=== PATIENT | male | born 1950 | race African-American/Black ===

== ENCOUNTER 2022-11-10 00:03 | Inpatient (IN) ==
[2022-11-10] MEDS ORDERED: MORPHINE 2 MG/1 ML SYRINGE IV PRN (04:19)
[2022-11-10] MEDS ORDERED: ACETAMINOPHEN 325 MG TABLET PO PRN (04:19)
[2022-11-10] MEDS ORDERED: ONDANSETRON 4 MG/2 ML VIAL IV PRN (04:19)
[2022-11-10] MEDS ORDERED: SODIUM CHLORIDE 0.9% 1,000 ML IV PRN (04:27)
[2022-11-10 05:19] LABS: Basophils % 0.3 % (0.0-0.8); Eosinophils # 0.1 10*3/uL (0.0-0.87); Eosinophils % 1.6 % (0.00-10.9); Hematocrit 23.3 VOL% (42.0-52.0); Hemoglobin 6.7 GM/DL (14.0-18.0); Immature Granulocytes % 0.3 %; Immature Granulocytes Absolute 0.02 #; Lymphocytes # 3.4 10*3/uL (1.4-4.0); Lymphocytes % 44.6 % (21.2-54.2); Mean Corpuscular HGB Conc 28.8 GM/DL (32-36); Mean Corpuscular Volume 76.4 FL (87-102); Mean Platelet Volume 9.8 FL (9.6-12.0); Monocytes # 0.6 10*3/uL (0.11-0.8); Monocytes % 7.4 % (1.7-12.7); Neutrophils % 45.8 % (38.7-73.9); Platelet Count 261 T/CUMM (130-400); Red Blood Count 3.05 MC/CUMM (3.8-5.5); Red Cell Distribution Width 18.5 % (9.3-17.3); White Blood Count 7.58 T/CUMM (4-12)
[2022-11-10 05:40] LABS: Albumin 2.9 G/DL (3.4-5.0); Bilirubin,Total 0.5 MG/DL (0.20-1.00); Calcium 8.9 MG/DL (8.5-10.1); Osmolality,Calculated 287.7 MOS/KG (273-304); Potassium 3.4 MMOL/L (3.5-5.1)
[2022-11-10] MEDS ORDERED: MAGNESIUM SULF RIDER 2 GM/50 ML PREMIX IV PRN (05:54)
[2022-11-10] MEDS ORDERED: MAGNESIUM SULF RIDER 4 GM/100 ML PREMIX IV PRN (05:54)
[2022-11-10] MEDS: INSULIN REGULAR 100 UNIT/ML SUBCUT SCH ×4 (08:54→21:30)
[2022-11-10] MEDS: EZETIMIBE 10 MG TABLET PO SCH (10:50)
[2022-11-10] MEDS: ISOSORBIDE DINITRATE 10 MG TABLET PO SCH ×2 (10:50→21:55)
[2022-11-10] MEDS: atenoloL 50 MG TABLET PO SCH (10:50)
[2022-11-10] MEDS: PANTOPRAZOLE 40 MG TABLET PO SCH (10:50)
[2022-11-10] MEDS: FUROSEMIDE 20 MG/2 ML VIAL IV SCH ×2 (10:55→21:54)
[2022-11-10] MEDS ORDERED: GLUCAGON 1 MG VIAL IM PRN (12:12)
[2022-11-10] MEDS ORDERED: DEXTROSE 10% 250 ML BAG IV PRN (12:13)
[2022-11-10] MEDS ORDERED: FUROSEMIDE 40 MG/4 ML VIAL IV ONE (17:26)
[2022-11-10] MEDS: ROSUVASTATIN 20 MG TABLET PO SCH (21:55)
[2022-11-10 23:00] LABS: Hematocrit 30.5 VOL% (42.0-52.0); Hemoglobin 9.1 GM/DL (14.0-18.0)
[2022-11-11 05:15] LABS: Basophils % 0.3 % (0.0-0.8); Eosinophils # 0.1 10*3/uL (0.0-0.87); Eosinophils % 1.3 % (0.00-10.9); Hematocrit 27.1 VOL% (42.0-52.0); Hemoglobin 8.1 GM/DL (14.0-18.0); Immature Granulocytes % 0.3 %; Immature Granulocytes Absolute 0.02 #; Lymphocytes # 2.2 10*3/uL (1.4-4.0); Lymphocytes % 35.5 % (21.2-54.2); Mean Corpuscular HGB Conc 29.9 GM/DL (32-36); Mean Corpuscular Volume 79.5 FL (87-102); Mean Platelet Volume 10.2 FL (9.6-12.0); Monocytes # 0.6 10*3/uL (0.11-0.8); Monocytes % 10.2 % (1.7-12.7); Neutrophils % 52.4 % (38.7-73.9); Platelet Count 233 T/CUMM (130-400); Red Blood Count 3.41 MC/CUMM (3.8-5.5); Red Cell Distribution Width 18.2 % (9.3-17.3); White Blood Count 6.06 T/CUMM (4-12)
[2022-11-11 05:35] LABS: Calcium 8.5 MG/DL (8.5-10.1); Osmolality,Calculated 288.3 MOS/KG (273-304); Potassium 3.3 MMOL/L (3.5-5.1)
[2022-11-11 05:37] LABS: Risk Ratio 2.06; VLDL Cholesterol 11.8 MG/DL
[2022-11-11] MEDS: FUROSEMIDE 20 MG/2 ML VIAL IV SCH ×2 (07:48→17:00)
[2022-11-11] MEDS ORDERED: POTASSIUM CHLORIDE 20 MEQ TABLET PO ONE ×2 (07:53→14:00)
[2022-11-11] MEDS: EZETIMIBE 10 MG TABLET PO SCH (09:55)
[2022-11-11] MEDS: ISOSORBIDE DINITRATE 10 MG TABLET PO SCH ×2 (09:55→20:37)
[2022-11-11] MEDS: INSULIN REGULAR 100 UNIT/ML SUBCUT SCH ×4 (09:56→20:35)
[2022-11-11] MEDS: atenoloL 50 MG TABLET PO SCH (09:56)
[2022-11-11] MEDS: PANTOPRAZOLE 40 MG TABLET PO SCH (09:56)
[2022-11-11] MEDS: hydrALAZINE 25 MG TABLET PO SCH ×2 (14:23→20:35)
[2022-11-11] MEDS: CHOLECALCIFEROL 5,000 UNIT TABLET PO SCH (20:35)
[2022-11-11] MEDS: carvediloL 3.125 MG TABLET PO SCH (20:35)
[2022-11-11] MEDS: ROSUVASTATIN 20 MG TABLET PO SCH (20:35)
[2022-11-12 05:38] LABS: Basophils % 0.2 % (0.0-0.8); Eosinophils # 0.1 10*3/uL (0.0-0.87); Eosinophils % 1.2 % (0.00-10.9); Hematocrit 28.4 VOL% (42.0-52.0); Hemoglobin 8.6 GM/DL (14.0-18.0); Immature Granulocytes % 0.1 %; Immature Granulocytes Absolute 0.01 #; Lymphocytes # 2.8 10*3/uL (1.4-4.0); Lymphocytes % 34.7 % (21.2-54.2); Mean Corpuscular HGB Conc 30.3 GM/DL (32-36); Mean Corpuscular Volume 78.9 FL (87-102); Mean Platelet Volume 9.7 FL (9.6-12.0); Monocytes # 0.7 10*3/uL (0.11-0.8); Monocytes % 9.2 % (1.7-12.7); NRBC # 0.02 10*3/uL; Neutrophils % 54.6 % (38.7-73.9); Platelet Count 236 T/CUMM (130-400); Red Cell Distribution Width 18.5 % (9.3-17.3); White Blood Count 8.01 T/CUMM (4-12)
[2022-11-12 06:08] LABS: Calcium 8.8 MG/DL (8.5-10.1); Osmolality,Calculated 279.7 MOS/KG (273-304); Potassium 3.8 MMOL/L (3.5-5.1)
[2022-11-12] MEDS: FUROSEMIDE 20 MG/2 ML VIAL IV SCH ×2 (07:27→17:22)
[2022-11-12] MEDS: SODIUM CHLORIDE 0.9% 1,000 ML IV SCH (09:27)
[2022-11-12] MEDS ORDERED: ETOMIDATE 20 MG/10 ML VIAL IV ONE (09:51)
[2022-11-12] MEDS ORDERED: LIDOCAINE 2% 5 ML VIAL ONE (09:51)
[2022-11-12] MEDS ORDERED: propofoL 200 MG/20 ML VIAL IV ONE (09:51)
[2022-11-12] MEDS ORDERED: PHENYLEPHRINE 1 MG/10 ML SYRINGE IV ONE (09:56)
[2022-11-12] MEDS: CHOLECALCIFEROL 5,000 UNIT TABLET PO SCH ×2 (10:49→21:10)
[2022-11-12] MEDS: carvediloL 3.125 MG TABLET PO SCH ×2 (10:49→21:10)
[2022-11-12] MEDS: EZETIMIBE 10 MG TABLET PO SCH (10:49)
[2022-11-12] MEDS: PANTOPRAZOLE 40 MG TABLET PO SCH (10:49)
[2022-11-12] MEDS: ISOSORBIDE DINITRATE 10 MG TABLET PO SCH ×2 (10:49→21:10)
[2022-11-12] MEDS: FLUCONAZOLE 100 MG TABLET PO SCH (10:49)
[2022-11-12] MEDS: hydrALAZINE 25 MG TABLET PO SCH ×3 (10:50→21:10)
[2022-11-12] MEDS: INSULIN REGULAR 100 UNIT/ML SUBCUT SCH ×4 (11:47→20:33)
[2022-11-12] MEDS ORDERED: BISACODYL 5 MG TABLET PO ONE (12:00)
[2022-11-12] MEDS ORDERED: POLYETHYLENE GLYCOL POWDER 255 GM BOTTLE PO ONE (18:00)
[2022-11-12] MEDS: ROSUVASTATIN 20 MG TABLET PO SCH (21:09)
[2022-11-13] MEDS: SODIUM CHLORIDE 0.9% 1,000 ML IV SCH (07:58)
[2022-11-13] MEDS ORDERED: propofoL 200 MG/20 ML VIAL IV ONE (08:31)
[2022-11-13] MEDS ORDERED: LIDOCAINE 2% 5 ML VIAL ONE (08:31)
[2022-11-13] MEDS ORDERED: PHENYLEPHRINE 1 MG/10 ML SYRINGE IV ONE (08:42)
[2022-11-13] MEDS: FUROSEMIDE 20 MG/2 ML VIAL IV SCH (10:02)
[2022-11-13] MEDS: hydrALAZINE 25 MG TABLET PO SCH (10:10)
[2022-11-13] MEDS: PANTOPRAZOLE 40 MG TABLET PO SCH (10:10)
[2022-11-13] MEDS: CHOLECALCIFEROL 5,000 UNIT TABLET PO SCH (10:10)
[2022-11-13] MEDS: EZETIMIBE 10 MG TABLET PO SCH (10:11)
[2022-11-13] MEDS: INSULIN REGULAR 100 UNIT/ML SUBCUT SCH (10:11)
[2022-11-13] MEDS: carvediloL 3.125 MG TABLET PO SCH (10:11)
[2022-11-13] MEDS: FLUCONAZOLE 100 MG TABLET PO SCH (10:11)
[2022-11-13] MEDS: ISOSORBIDE DINITRATE 10 MG TABLET PO SCH (10:11)
[2022-11-13 12:17] VITALS: BP 105/55
== END 2022-11-13 11:30 | disposition home health service (06) | DRG 374 ==
LOC: N.TELES → OBSVTOIN 04:00 → SUATTDRO 04:00
PROVIDERS: ADMIT Internal Medicine; ATTEND Internal Medicine
PROC: COLONBX (2022-11-13 08:50)

== ENCOUNTER 2022-11-18 16:11 | Inpatient (IN) ==
[2022-11-18 18:11] LABS: Basophils % 0.1 % (0.0-0.8); Hematocrit 26.7 VOL% (42.0-52.0); Immature Granulocytes % 0.7 %; Immature Granulocytes Absolute 0.14 #; Lymphocytes # 2.7 10*3/uL (1.4-4.0); Lymphocytes % 14.6 % (21.2-54.2); Mean Corpuscular Volume 79.2 FL (87-102); Mean Platelet Volume 10.3 FL (9.6-12.0); Monocytes # 0.7 10*3/uL (0.11-0.8); Monocytes % 3.5 % (1.7-12.7); Neutrophils % 81.1 % (38.7-73.9); Platelet Count 156 T/CUMM (130-400); Red Blood Count 3.37 MC/CUMM (3.8-5.5); Red Cell Distribution Width 19.6 % (9.3-17.3); White Blood Count 18.67 T/CUMM (4-12)
[2022-11-18 18:31] LABS: Albumin 2.5 G/DL (3.4-5.0); Bilirubin,Total 0.5 MG/DL (0.20-1.00); Calcium 8.5 MG/DL (8.5-10.1); Osmolality,Calculated 298.1 MOS/KG (273-304); Potassium 3.7 MMOL/L (3.5-5.1)
[2022-11-18] MEDS ORDERED: FUROSEMIDE 40 MG/4 ML VIAL IV STA (19:05)
[2022-11-18] MEDS ORDERED: ACETAMINOPHEN 325 MG TABLET PO PRN (21:19)
[2022-11-18] MEDS ORDERED: diphenhydrAMINE CAP 25 MG CAPSULE PO PRN (21:19)
[2022-11-18] MEDS ORDERED: hydrALAZINE 20 MG/1 ML VIAL IV PRN (21:19)
[2022-11-18] MEDS ORDERED: guaiFENesin/DM ER 600-30 MG TABLET PO PRN (21:19)
[2022-11-18] MEDS ORDERED: GLUCAGON 1 MG VIAL IM PRN (21:19)
[2022-11-18] MEDS ORDERED: ONDANSETRON 4 MG/2 ML VIAL IV PRN (21:19)
[2022-11-18] MEDS ORDERED: PROMETHAZINE 25 MG/1 ML VIAL IM PRN (21:19)
[2022-11-18] MEDS ORDERED: CALCIUM CARBONATE CHEW 500 MG TABLET PO PRN (21:19)
[2022-11-18] MEDS ORDERED: NICOTINE 21 MG/24 HR PATCH TRANSDERM PRN (21:19)
[2022-11-18] MEDS ORDERED: ZALEPLON 5 MG CAPSULE PO PRN (21:19)
[2022-11-18] MEDS ORDERED: DEXTROSE 10% 250 ML BAG IV PRN (21:35)
[2022-11-18] MEDS: LEVOFLOXACIN INJ 750 MG/150 ML PREMIX IV SCH (22:20)
[2022-11-18 22:51] LABS: Mucus,Urine Occasional /LPF (Occasional); RBC,Urine <1 /HPF (0-4)
[2022-11-18 22:52] LABS: Urine Color Yellow (Yellow)
[2022-11-18 22:53] LABS: Bilirubin,Urine Negative (Negative); Blood, Urine Moderate mg/dL (Negative); Glucose,Urine (UA) >=1000 mg/dL (Negative); Ketones,Urine Negative (Negative); Nitrite,Urine Negative (Negative); Protein,Urine 100 mg/dL (Negative); Urine Appearance Clear (Clear); Urine Urobilinogen 0.2 eU/dL (<2.0); Urine pH 5.5 (4.5-8.0)
[2022-11-18] MEDS ORDERED: INSULIN REGULAR 100 UNIT/ML IV STA (22:57)
[2022-11-19] MEDS: VANCOMYCIN INJ 1,000 MG in SODIUM CHLORIDE 0.9% 250 ML IV SCH ×2 (00:40→17:29)
[2022-11-19] MEDS: ALBUTEROL/IPRATROPIUM 3 ML NEB RESP TX SCH ×4 (01:40→18:52)
[2022-11-19 04:55] LABS: Basophils % 0.2 % (0.0-0.8); Hematocrit 28.3 VOL% (42.0-52.0); Hemoglobin 8.5 GM/DL (14.0-18.0); Immature Granulocytes % 0.7 %; Immature Granulocytes Absolute 0.11 #; Lymphocytes # 2.1 10*3/uL (1.4-4.0); Lymphocytes % 12.3 % (21.2-54.2); Mean Corpuscular Volume 78.4 FL (87-102); Monocytes # 0.8 10*3/uL (0.11-0.8); Monocytes % 4.8 % (1.7-12.7); Platelet Count 144 T/CUMM (130-400); Red Blood Count 3.61 MC/CUMM (3.8-5.5); Red Cell Distribution Width 19.3 % (9.3-17.3); White Blood Count 16.92 T/CUMM (4-12)
[2022-11-19 05:14] LABS: Calcium 8.6 MG/DL (8.5-10.1); Osmolality,Calculated 296.3 MOS/KG (273-304); Potassium 3.5 MMOL/L (3.5-5.1)
[2022-11-19] MEDS: PANTOPRAZOLE 40 MG TABLET PO SCH (08:21)
[2022-11-19] MEDS: BISACODYL 5 MG TABLET PO SCH (08:21)
[2022-11-19] MEDS: FUROSEMIDE 40 MG/4 ML VIAL IV SCH ×2 (09:24→16:23)
[2022-11-19] MEDS ORDERED: GLUCAGON 1 MG VIAL IM PRN (14:42)
[2022-11-19 15:27] LABS: % Iron Saturation 4.6 % (18-50)
[2022-11-19 15:34] LABS: Folate 9.41 NG/ML (5.38-24.0)
[2022-11-19] MEDS ORDERED: INSULIN REGULAR 100 UNIT/ML ONE (17:27)
[2022-11-19] MEDS: INSULIN REGULAR 100 UNIT/ML SUBCUT SCH ×2 (17:29→21:29)
[2022-11-19] MEDS ORDERED: INSULIN GLARGINE 100 UNIT/ML SUBCUT SCH (21:00)
[2022-11-19] MEDS: hydrALAZINE 25 MG TABLET PO SCH (21:28)
[2022-11-19] MEDS: carvediloL 3.125 MG TABLET PO SCH (21:28)
[2022-11-19] MEDS: MAGNESIUM OXIDE 400 MG TABLET PO SCH (21:28)
[2022-11-19] MEDS: LEVOFLOXACIN INJ 750 MG/150 ML PREMIX IV SCH (21:28)
[2022-11-19] MEDS: CHOLECALCIFEROL 5,000 UNIT TABLET PO SCH (21:28)
[2022-11-19] MEDS: ISOSORBIDE DINITRATE 10 MG TABLET PO SCH (21:28)
[2022-11-20] MEDS: ALBUTEROL/IPRATROPIUM 3 ML NEB RESP TX SCH ×4 (00:06→19:35)
[2022-11-20 04:15] LABS: Basophils % 0.2 % (0.0-0.8); Eosinophils # 0.1 10*3/uL (0.0-0.87); Eosinophils % 0.5 % (0.00-10.9); Hemoglobin 7.9 GM/DL (14.0-18.0); Immature Granulocytes % 0.5 %; Immature Granulocytes Absolute 0.06 #; Lymphocytes # 2.4 10*3/uL (1.4-4.0); Lymphocytes % 19.3 % (21.2-54.2); Mean Corpuscular HGB Conc 30.4 GM/DL (32-36); Mean Corpuscular Volume 77.2 FL (87-102); Mean Platelet Volume 11.1 FL (9.6-12.0); Monocytes # 0.4 10*3/uL (0.11-0.8); Monocytes % 3.6 % (1.7-12.7); Neutrophils % 75.9 % (38.7-73.9); Platelet Count 150 T/CUMM (130-400); Red Blood Count 3.37 MC/CUMM (3.8-5.5); Red Cell Distribution Width 19.3 % (9.3-17.3)
[2022-11-20 04:30] LABS: Calcium 8.4 MG/DL (8.5-10.1); Osmolality,Calculated 290.1 MOS/KG (273-304); Potassium 2.8 MMOL/L (3.5-5.1)
[2022-11-20] MEDS: INSULIN REGULAR 100 UNIT/ML SUBCUT SCH ×4 (08:39→20:32)
[2022-11-20] MEDS ORDERED: POTASSIUM CHLORIDE 20 MEQ TABLET PO ONE (09:24)
[2022-11-20] MEDS: FUROSEMIDE 40 MG/4 ML VIAL IV SCH ×2 (09:42→16:43)
[2022-11-20] MEDS ORDERED: DEXTROSE 50% 25 GM/50 ML VIAL IV PRN (10:48)
[2022-11-20] MEDS: VANCOMYCIN INJ 1,000 MG in SODIUM CHLORIDE 0.9% 250 ML IV SCH (11:48)
[2022-11-20] MEDS: ISOSORBIDE DINITRATE 10 MG TABLET PO SCH ×2 (13:02→20:31)
[2022-11-20] MEDS: ASPIRIN EC 81 MG TABLET PO SCH (13:02)
[2022-11-20] MEDS: carvediloL 3.125 MG TABLET PO SCH ×2 (13:03→20:31)
[2022-11-20] MEDS: MAGNESIUM OXIDE 400 MG TABLET PO SCH ×2 (13:03→20:31)
[2022-11-20] MEDS: PANTOPRAZOLE 40 MG TABLET PO SCH (13:03)
[2022-11-20] MEDS: FERROUS SULFATE 325 MG TABLET PO SCH (13:03)
[2022-11-20] MEDS: hydrALAZINE 25 MG TABLET PO SCH ×3 (13:04→20:30)
[2022-11-20] MEDS: BISACODYL 5 MG TABLET PO SCH (13:04)
[2022-11-20] MEDS: CHOLECALCIFEROL 5,000 UNIT TABLET PO SCH ×2 (13:10→20:31)
[2022-11-20] MEDS: FERRIC GLUCONATE COMPLEX 125 MG in SODIUM CHLORIDE 0.9% 100 ML IV SCH (13:49)
[2022-11-20] MEDS: LEVOFLOXACIN INJ 750 MG/150 ML PREMIX IV SCH (20:32)
[2022-11-20] MEDS ORDERED: INSULIN GLARGINE 100 UNIT/ML SUBCUT SCH (21:00)
[2022-11-21] MEDS: ALBUTEROL/IPRATROPIUM 3 ML NEB RESP TX SCH ×2 (01:20→07:46)
[2022-11-21 05:16] LABS: Basophils % 0.1 % (0.0-0.8); Eosinophils # 0.1 10*3/uL (0.0-0.87); Hematocrit 27.8 VOL% (42.0-52.0); Hemoglobin 8.5 GM/DL (14.0-18.0); Immature Granulocytes % 0.5 %; Immature Granulocytes Absolute 0.05 #; Lymphocytes # 2.8 10*3/uL (1.4-4.0); Lymphocytes % 25.7 % (21.2-54.2); Mean Corpuscular HGB Conc 30.6 GM/DL (32-36); Mean Corpuscular Volume 77.7 FL (87-102); Mean Platelet Volume 10.7 FL (9.6-12.0); Monocytes # 0.6 10*3/uL (0.11-0.8); Monocytes % 5.3 % (1.7-12.7); NRBC # 0.02 10*3/uL; Neutrophils % 67.4 % (38.7-73.9); Platelet Count 162 T/CUMM (130-400); Red Blood Count 3.58 MC/CUMM (3.8-5.5); Red Cell Distribution Width 19.6 % (9.3-17.3)
[2022-11-21 05:30] LABS: Calcium 8.9 MG/DL (8.5-10.1); Osmolality,Calculated 288.5 MOS/KG (273-304); Potassium 3.5 MMOL/L (3.5-5.1)
[2022-11-21 05:36] LABS: Hypochromia 1+
[2022-11-21 05:37] LABS: Acanthocytes Few; Microcytosis 1+; Ovalocytes Few; Polychromasia Slight; Target Cells Slight
[2022-11-21 05:38] LABS: Platelet Estimate Adequate
[2022-11-21] MEDS: ASPIRIN EC 81 MG TABLET PO SCH (09:22)
[2022-11-21] MEDS: CHOLECALCIFEROL 5,000 UNIT TABLET PO SCH (09:22)
[2022-11-21] MEDS: ISOSORBIDE DINITRATE 10 MG TABLET PO SCH (09:22)
[2022-11-21] MEDS: PANTOPRAZOLE 40 MG TABLET PO SCH (09:22)
[2022-11-21] MEDS: hydrALAZINE 25 MG TABLET PO SCH (09:22)
[2022-11-21] MEDS: carvediloL 3.125 MG TABLET PO SCH (09:22)
[2022-11-21] MEDS: FERROUS SULFATE 325 MG TABLET PO SCH (09:22)
[2022-11-21] MEDS: MAGNESIUM OXIDE 400 MG TABLET PO SCH (09:22)
[2022-11-21] MEDS: BISACODYL 5 MG TABLET PO SCH (09:25)
[2022-11-21] MEDS: INSULIN REGULAR 100 UNIT/ML SUBCUT SCH ×2 (09:25→13:12)
[2022-11-21] MEDS: FUROSEMIDE 40 MG/4 ML VIAL IV SCH (10:23)
[2022-11-21] MEDS: FERRIC GLUCONATE COMPLEX 125 MG in SODIUM CHLORIDE 0.9% 100 ML IV SCH (10:25)
[2022-11-21] MEDS ORDERED: SODIUM CHLORIDE 0.9% 500 ML IV ONE (11:07)
[2022-11-21 11:51] VITALS: BP 123/70
== END 2022-11-21 14:00 | disposition home health service (06) | DRG 291 ==
LOC: N.ED 16:11 → N.EDINP 21:19 → N.TELEN 23:17
PROVIDERS: ADMIT Internal Medicine; ATTEND Internal Medicine